=== PATIENT | female | born 1995 | race Caucasian/White ===

== ENCOUNTER 2017-02-02 06:27 | Inpatient (IN) | payer OTHER, SELFPAY ==
[~2017-02-02] VITALS: Ht 165.1 cm; Wt 76.4 kg
--- NOTE | ~2017-02-02 | OR ---
PATIENT'S NAME: ANUJA FRANK [facility] AGE: 21 Y [address] 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 PREDELIVERY DIAGNOSES: 1. Intrauterine at 41 weeks, 0 days. 2. History of placenta previa, that resolved. POSTDELIVERY DIAGNOSES: 1. Intrauterine at 41 weeks, 0 days. 2. History of placenta previa, that resolved. FINDINGS: Viable female infant, weight of 9 pounds, 2 ounces, and score of 8 and 9. Intact placenta with 3-vessel cord. Normal-appearing cervix and vagina. First-degree perineal and right labial and periurethral lacerations, hemostatic, at end of procedure. ANESTHESIA: Epidural. ESTIMATED BLOOD LOSS: 300 mL. ANTIBIOTICS: None indicated. COMPLICATIONS: None. INDICATION FOR PROCEDURE: The patient is a 21-year-old G2, P1-0-0-1 who presented for a scheduled induction of labor, secondary to postdates on February 02, 2017. She was 41 weeks and 0 days at that time. The patient was approximately 2 to 3 cm dilated. An AROM was attempted and was unsuccessful and she was started on IV Pitocin. She progressed and AROM was performed approximately 4 hours later with clear fluid. She then continued to progress normally through labor. It was noted to be complete. DESCRIPTION OF PROCEDURE: [facility] and with expulsive efforts delivered the head in the straight OA presentation. It was allowed to restitute. With the assistance of gentle downward and then upward traction, the shoulders were delivered followed by the remainder of the body. was placed on PATIENT'S NAME: ANUJA FRANK [facility] AGE: 21 Y [address] ROOM: [place] [id number] LOCATION: BS ADMIT DATE: 02/02/2017 OR/Procedure Report DISCHARGE DATE: FAMILY PHYSICIAN: Trina Navarro APRN ATTENDING PHYSICIAN: SOHAM LOVELL the mother's chest. Delayed cord clamping was performed and then cord was clamped and cut. IV Pitocin was started per protocol. Cord blood was obtained. Gentle downward traction was placed on the cord and then placenta did not spontaneously deliver. Attention was then turned to repair of lacerations. The patient had a first-degree perineal and small right labial and periurethral lacerations, which were repaired with 3-0 Vicryl and were hemostatic. Gentle downward traction was then again placed on the cord and the placenta then delivered spontaneously and was intact. Cervix, vagina, and perineum were again inspected and noted to be hemostatic with no further lacerations noted. All needle, sponge, and instrument counts were noted to be correct x2 and the patient was kept in her room for normal care. to remain in the room with the mother. SOHAM LOVELL MD GT/modl /[id number] d: 02/03/17 0030 t: 02/03/17 0753, OPERATIVE SUMMARY
[2017-02-02 07:41] LABS: BASOPHIL % 0.4 %; EOSINOPHIL # 0.1 K/uL (0.0-0.5); EOSINOPHIL % 1.1 %; HEMATOCRIT 38.5 % (33.0-46.0); HEMOGLOBIN 12.9 g/dL (11.0-15.0); IMMATURE GRANULOCYTE % 0.3 %; LYMPHOCYTE # 2.4 K/uL (0.8-4.0); LYMPHOCYTE % 24.6 %; MCHC 33.5 gm/dL (32.0-36.5); MCV 86.5 fl (83.0-98.0); MONOCYTE # 0.8 K/uL (0.0-1.0); MONOCYTE % 7.8 %; MPV 12.7 fl (9.4-12.4); NEUTROPHIL # (ANC) 6.5 K/uL (1.8-7.8); NEUTROPHIL % 65.8 %; NRBC % 0 /100WBC (0-0.00); PLATELET COUNT 121 K/uL (150-450); RBC 4.45 M/uL (3.50-5.00); RDW-CV 13.2 % (11.9-14.6); WBC 9.8 K/uL (4.0-11.0)
[2017-02-02] MEDS ORDERED: PRENATAL 1+1)(P1 TAB PO (09:13)
--- NOTE | 2017-02-02 17:00 | NUR ---
02/02/: 1725: 5 cms/80/-1/ant. arom @ 1205,clear fluid,blood tinged.IV Pitocin on 7 mu/min. Kevon every 2-3 min. Fisher emptied of 650 ml clear yellow urine.
--- NOTE | 2017-02-03 05:04 | NUR ---
VSS, fundus firm, midline, small flow, IV SL, Motrin last at 2052, Tylenol at 48, Allergic to Percocet
[2017-02-03 07:01] LABS: BASOPHIL % 0.3 %; EOSINOPHIL # 0.1 K/uL (0.0-0.5); EOSINOPHIL % 0.8 %; HEMATOCRIT 34.6 % (33.0-46.0); HEMOGLOBIN 11.6 g/dL (11.0-15.0); IMMATURE GRANULOCYTE % 0.3 %; LYMPHOCYTE # 2.7 K/uL (0.8-4.0); LYMPHOCYTE % 19.9 %; MCH 29.4 pg (27.0-34.0); MCHC 33.5 gm/dL (32.0-36.5); MCV 87.8 fl (83.0-98.0); MONOCYTE % 7.3 %; MPV 12.6 fl (9.4-12.4); NEUTROPHIL # (ANC) 9.6 K/uL (1.8-7.8); NEUTROPHIL % 71.4 %; NRBC % 0 /100WBC (0-0.00); PLATELET COUNT 114 K/uL (150-450); RBC 3.94 M/uL (3.50-5.00); RDW-CV 13.2 % (11.9-14.6); WBC 13.4 K/uL (4.0-11.0)
--- NOTE | 2017-02-04 04:56 | NUR ---
VSS, 1 TYLENOL GIVEN AT 2310. PT AD MACK AND INDEPENDENT WITH CARES. PLANS HOME TODAY. FUNDUS FIRM, SMALL FLOW.
[2017-02-04] MEDS ORDERED: SURFAK240 MG PO (10:14)
[2017-02-04] MEDS ORDERED: ACETAMINOPHEN325 MG PO (10:14)
== END 2017-02-04 12:30 | disposition disaster alternative care site (69) | DRG 775 ==
LOC: GOBS 06:27 → GOBM 06:27 → GOBS 06:28
PROVIDERS: ADMIT Obstetrics & Gynecology
PROC: 10907ZC Drainage of Amniotic Fluid, Therapeutic from Products of Conception, Via Natural or Artificial Opening (ICD-10-PCS; principal; 2017-02-02)
PROC: 0HQ9XZZ Repair Perineum Skin, External Approach (ICD-10-PCS; principal; 2017-02-02)
PROC: 10E0XZZ Delivery of Products of Conception, External Approach (ICD-10-PCS; principal; 2017-02-02)
PROC: 3E033VJ Introduction of Other Hormone into Peripheral Vein, Percutaneous Approach (ICD-10-PCS; principal; 2017-02-02)
DX: O70.0 First degree perineal laceration during delivery (principal); O71.82 Other specified trauma to perineum and vulva; Z37.0 Single live birth; Z3A.41 41 weeks gestation of pregnancy
CPT/HCPCS: J2001; J2405; J2590; J3010; J7120